=== PATIENT | male | born 1985 | race African-American/Black ===

== ENCOUNTER 2019-04-16 03:26 | Emergency (ER) | payer MEDICAID ==
[~2019-04-16] VITALS: Ht 180.3 cm; Wt 99.8 kg
[2019-04-16 03:34] VITALS: BP 151/92
--- NOTE | 2019-04-16 03:39 | NUR ---
ED Nurse Note: Patient walked in to ER c/o severe earache. Per patient's she poped up the pimple inside of his ear and since that it is very painful. AAO x4, VSS at this time, skin is dry, warm to touch.
--- NOTE | 2019-04-16 03:47 | Emergency Room Report ---
History of Present Illness General Chief Complaint: Earache Source: Patient Present Illness [facility] This is a 34-year-old male with no past medical history. He presents with left ear pain. Onset for last 2 days. No trauma. No cough or congestion. He had a small abscess in there. His popped it with a tweezers. And it got worse. Pain is throbbing in nature. 8 out of 10. Worse with movement. No further drainage. Allergies: Coded Allergies: No Known Allergies (Unverified , 04/16/19) Patient History Past Medical History: see triage record Past Surgical History: none Pertinent Family History: none Social History: Denies: smoking Immunizations: other Reviewed Nursing Documentation: PMH: Agreed; PSxH: Agreed Nursing Documentation-PMH Past Medical History: No Stated History Review of Systems Eye: Denies: eye pain, blurred vision ENT: Reports: ear pain; Denies: nose congestion, throat swelling Respiratory: Denies: cough, shortness of breath Cardiovascular: Denies: chest pain, palpitations Gastrointestinal: Denies: abdominal pain, diarrhea, nausea, vomiting Musculoskeletal: Denies: back pain, joint pain Skin: Denies: rash Neurological: Denies: headache, numbness Endocrine: Denies: increased thirst, increased urine Hematologic/Lymphatic: Denies: easy bruising All Other Systems: negative except mentioned in HPI Physical Exam Vital Signs Date Time Temp Pulse Resp B/P (MAP) Pulse Ox O2 Delivery O2 Flow Rate FiO2 04/16/19 03:28 98.4 67 14 151/92 (111) 95 Room Air Vitals with high blood pressure Sp02 EP Interpretation: reviewed, normal General Appearance: well appearing, no apparent distress, alert Head: normocephalic, atraumatic Eyes: bilateral eye PERRL, bilateral eye EOMI ENT: hearing grossly normal, normal pharynx, other - Left ear canal: Near the opening, there is small abscess area that was drained already. No erythema to the TM. No edema. Neck: full range of motion, supple, no meningismus Respiratory: chest non-tender, lungs clear, normal breath sounds Cardiovascular #1: regular rate, rhythm, no murmur Gastrointestinal: normal bowel sounds, non tender, no mass, no organomegaly, no bruit, non-distended Musculoskeletal: back normal, gait/station normal, normal range of motion Psychiatric: mood/affect normal Medical Decision Making Diagnostic Impression: Primary Impression: Abscess of left ear canal ER Course Patient with a superficial abscess to the left ear canal. Most likely MRSA. Will treat with antibiotics. Last Vital Signs Date Time Temp Pulse Resp B/P (MAP) Pulse Ox O2 Delivery O2 Flow Rate FiO2 04/16/19 03:34 98.4 14 151/92 95 Room Air 04/16/19 03:28 67 Status: improved Disposition: HOME, SELF-CARE Condition: Stable Scripts Trimethoprim/Sulfamethoxazole 160/800* (BACTRIM DS TABLET*) 1 Each Tablet 1 TAB ORAL Q12H, #14 TAB 0 Refills Prov: Jonas Redmond MD 04/16/19 Neomycin/Polymyxin B Sulf/Hc* (CORTISPORIN EAR SOLUTION*) 10 Ml Solution 4 DROP LEFT EAR QID, #10 ML 0 Refills Prov: Jonas Redmond MD 04/16/19 Additional Instructions: Follow-up with your doctor in 2 to 3 days for recheck if not better. Return if worse. Jonas Redmond MD Apr 16, 2019 03:47
[2019-04-16] MEDS ORDERED: BACTRIM DS TAB1 EAC1 ORAL (03:54)
[2019-04-16] MEDS ORDERED: CORTISPORIN EAR10 ML LEFT EAR (03:54)
[2019-04-16] MEDS ORDERED: HYDROcodone/Acetamin 5/325 tab ORAL ONE (04:00)
[2019-04-16] MEDS ORDERED: NORCO 5-325 TA1 EACH ORAL (04:07)
[2019-04-16 04:11] VITALS: BP 151/92
--- NOTE | 2019-04-16 04:12 | NUR ---
ED Nurse Note: Pt cleared by health care Provider for discharge. DC instructions/prescription was given and explained to pt and verbalized understanding of teachings. All medical deviecs such as ID band removed. Pt is AAO x4, ambulatory and left with all personal belongings.
== END 2019-04-16 04:12 | disposition home or self-care (01) ==
LOC: EMR 03:45
DX: H66.42 Suppurative otitis media, unspecified, left ear (principal)
CPT/HCPCS: 99282